=== PATIENT | male | born 1975 ===

== ENCOUNTER 2020-01-31 06:54 | Emergency (ER) | payer OTHER ==
[~2020-01-31] VITALS: Ht 170.2 cm; Wt 99.8 kg
[2020-01-31] MEDS ORDERED: AMLODIPINE BESYL5 MG PO (07:14)
[2020-01-31] MEDS ORDERED: DIAZEPAM5 MG PO (07:14)
[2020-01-31] MEDS ORDERED: PROP120ER PO (07:14)
[2020-01-31] MEDS ORDERED: PROPRANOLOL HCL80 MG PO (07:14)
== END 2020-01-31 07:37 | disposition home or self-care (01) ==
LOC: ER 06:54
DX: F41.9 Anxiety disorder, unspecified (principal); R53.1 Weakness; F32.9 Major depressive disorder, single episode, unspecified; Z79.899 Other long term (current) drug therapy
CPT/HCPCS: 99283

== ENCOUNTER 2022-05-02 18:04 | Inpatient (IN) | payer OTHER ==
[~2022-05-02] VITALS: Ht 170.2 cm; Wt 134.4 kg
[~2022-05-02 18:04] MED LIST: AMLODIPINE BESYL5 MG PO; DIAZEPAM5 MG PO; PROP120ER PO; PROPRANOLOL HCL80 MG PO
[2022-05-02 18:43] LABS: BASOPHILS ABSOLUTE AUTO 0.04 K/mm3 (0.00-0.23); BASOPHILS PERCENT AUTO 0 % (0-2); EOSINOPHILS ABSOLUTE AUTO 0.11 K/mm3 (0.00-0.68); EOSINOPHILS PERCENT AUTO 1 % (0-6); Hematocrit 39.8 % (37.0-53.0); Hemoglobin 12.5 g/dL (13.5-17.5); IMMATURE GRAN ABSOLUTE AUTO 0.04 K/mm3 (0.00-0.10); IMMATURE GRAN PERCENT AUTO 0 % (0-1); LYMPHOCYTES ABSOLUTE AUTO 0.97 K/mm3 (0.84-5.20); LYMPHOCYTES PERCENT AUTO 10 % (21-46); MONOCYTES ABSOLUTE AUTO 0.94 K/mm3 (0.16-1.47); MONOCYTES PERCENT AUTO 10 % (4-13); Mean Corpuscular HGB 26.7 pg (26.0-34.0); Mean Corpuscular HGB Conc 31.4 g/dL (31.5-36.5); Mean Corpuscular Volume 85 fL (80-100); Mean Platelet Volume 11.1 fL (9.1-12.4); NEUTROPHILS ABSOLUTE AUTO 7.65 K/mm3 (1.96-9.15); NEUTROPHILS PERCENT AUTO 79 % (41-73); Platelet Count 179 K/mm3 (150-400); RDW Coefficient Variation 16.7 % (11.7-14.2); RDW Standard Deviation 51.5 fL (35.1-46.3); Red Blood Cell Count 4.69 M/mm3 (4.30-5.90); White Blood Cell Count 9.75 K/mm3 (4.00-11.30)
[2022-05-02 19:02] LABS: Albumin, Blood 4.1 g/dL (3.4-5.0); Albumin/Globulin Ratio 1.1 (0.8-1.8); Bilirubin, Total 0.7 mg/dL (0.1-1.0); Bun/Creatinine Ratio 31.2 (12.0-20.0); Calcium, Blood 9.4 mg/dL (8.5-10.1); Creatinine, Blood 0.8 mg/dL (0.60-1.20); Globulin, Blood 3.6 g/dL (2.2-4.0); Potassium, Blood 4.2 mmol/L (3.5-5.5); Total Protein, Blood 7.7 g/dL (6.4-8.2)
[2022-05-02] MEDS ORDERED: LOSARTAN-HCTZ1 EACH PO (22:53)
--- NOTE | 2022-05-03 05:09 | NUR ---
SHIFT SUMMARY PT NEW ADMIT THIS AM. AAOX4. REPORTING DISCOMFORT SCROTUM + PENIS AT TOLERABLE LEVEL SINCE FENTANYL ADMINISTRATION IN ED. DENIES NAUSEA/EMESIS. SWELLING TO SCROTUM + PENIS NOTED, PILLOW CASES GIVEN AND ELEVATED ON PILLOWS. BLE EDEMA 3+ PITTING. PT REPORTING "THIS ALL STARTED 3 DAYS AGO." LUNG SOUNDS CLEAR. TELEMETRY READING SINUS TACH 100s-120s. HTN NOTED, DECREASING WITH PT'S ANXIETY. INDEPENDENT IN ROOM. ORIENTED TO CALL LIGHT + DEMONSTRATED USE. PT NOW RESTING POST BLOOD DRAW, AWAITING RESULTS.
[2022-05-03 05:18] LABS: Bun/Creatinine Ratio 27.1 (12.0-20.0); Creatinine, Blood 0.78 mg/dL (0.60-1.20); Potassium, Blood 3.7 mmol/L (3.5-5.5)
--- NOTE | 2022-05-03 18:34 | NUR ---
Received report from ongoing nurse. Pt resting comfortably in bed. Complaining of pain. Medicated per emar. Pt axox4. VSS stable but, bp elevated. Medicated per emar. Will continue to monitor.
--- NOTE | 2022-05-04 06:44 | NUR ---
Shift Summary Pt Scrotum still severly swollen, although pt states it is better. Pt C/O pain in scrotum, medicated per emar. AOX4, pleasant and cooperative, VSS.
--- NOTE | 2022-05-05 06:28 | NUR ---
Shift Summary Pt c/o severe pain in scrotum, 6-9/10 and constant. Medicated per emar, pt states current medications bring pain down to an acceptable level. +3 edema in scrotum, +1 BLE and abdominal edema. NPO excpet water since 0000 pending cardiac stress test today. Pt has been diuresing well all day, at least 5L and pt states edema is greatly improved from a few days ago. Unable to sleep much tonight which pt states is normal for him. On tele, AOx4, pleasant and cooperative, VSS. Pain improved this AM, pt not requesting medication at this time.
--- NOTE | 2022-05-06 03:09 | NUR ---
SHIFT SUMMARY NOC PT A/O X 4. PT HAS PART 2 OF STRESS TEST SCHEDULED FOR 05/06/22 @ 0800. D/C PENDING RESULTS. PT HAD C/O OF PAIN IN SCROTUM AND WAS MEDICATED PER EMAR. PT WAS PLEASANT AND COOPERATIVE TO CARE. PT ON TELE RUNNING SINUS RHYTHM WITH PAC @ 96 BPM. PT TAKING LASIX TID TO DIUREIS FLUID OVERLOAD FROM NEW DX OF CHF. PT IS CURRENTLY RESTING IN BED IN LOWEST POSITION, AND CALL LIGHT WITHIN REACH.WCTM.
[2022-05-06 07:25] LABS: Bun/Creatinine Ratio 29.4 (12.0-20.0); Calcium, Blood 9.4 mg/dL (8.5-10.1); Creatinine, Blood 1.09 mg/dL (0.60-1.20); Magnesium, Blood 2.4 mg/dL (1.6-2.4); Potassium, Blood 3.7 mmol/L (3.5-5.5)
--- NOTE | 2022-05-06 16:51 | NUR ---
SHIFT SUMMARY: PT A&O X4. PLEASANT AND COOPERATIVE WITH ALL CARE. O8OO STRESS TEST MOVED TO 1400. PT TOLERATED WELL. PT REMAINS TO C/O 8/10 PAIN IN SCROTAL AREA. 10MG OXY GIVEN TWICE. PT STATED THE PAIN MEDICATIONS DO NOT HELP WITH HIS PAIN. LASIX GIVEN AND TOLERATED TID. PT HAD PROLONGED QT INTERVAL AT .50 THIS AM ONE TIME. PT NO LONGER HAS PROLONGED QT. CURRENTLY SINUS RHYTHM. CALL LIGHT IN REACH. WILL CONTINUE TO MONITOR.
--- NOTE | 2022-05-07 06:41 | NUR ---
LOCO "Q" HAD NO COMPLAINTS OF CHEST PAIN OR SOB OVERNIGHT. SR ON TELE. LOWER EXTREMITIES AND FEET ARE LARGE BUT NON PITTING. SCROTUM IS SEVERLY SWOLLEN AND PAINFUL. WORKED WITH PATIENT TO TRY TO FIND A VERY GENTLE TYPE OF SCROTAL SUPPORT THIS IS REALLY A CONCERN FOR HIM PRIOR TO GOING HOME (HOPEFULLY) TODAY
[2022-05-07 06:43] LABS: Bun/Creatinine Ratio 31.1 (12.0-20.0); Calcium, Blood 9.9 mg/dL (8.5-10.1); Creatinine, Blood 1.03 mg/dL (0.60-1.20); Magnesium, Blood 2.7 mg/dL (1.6-2.4); Potassium, Blood 3.8 mmol/L (3.5-5.5)
[2022-05-07] MEDS ORDERED: JARDIANCE25 MG PO (11:57)
[2022-05-07] MEDS ORDERED: LOSA50 PO (11:59)
[2022-05-07] MEDS ORDERED: METO50ER PO (12:00)
[2022-05-07] MEDS ORDERED: FURO40 PO (12:01)
[2022-05-07] MEDS ORDERED: SPIR25 PO (12:01)
[2022-05-07] MEDS ORDERED: POTCHL20ER PO (12:02)
--- NOTE | 2022-05-07 12:35 | NUR ---
DISCHARGE: PT D/C AT 1215 VIA AUTOMOBILE WITH FRIEND. IV TAKEN OUT BY TRAFFIC CONTROLLER CABLE. TELE OFF AND JUANITA IN TELE NOTIFIED. ALL BELONGINGS SENT WITH PT. PT HAS FOLLOW-UP APT TUESDAY WITH PRIMARY AT 1400. PT STATES HE WILL MAKE IT TO APT. [facility] CALL PT FOR FOLLOW-UP APT. PHARMACIST WENT OVER NEW MEDICATIONS WITH PT AND EDUCATION PROVIDED ON NEW MEDS.
== END 2022-05-07 12:22 | disposition home or self-care (01) | DRG 291 ==
LOC: ER 18:04 → MEDS 18:05
PROVIDERS: Student in an Organized Health Care Education/Training Program; ADMIT Internal Medicine
DX: I11.0 Hypertensive heart disease with heart failure (principal); I50.41 Acute combined systolic (congestive) and diastolic (congestive) heart failure; I42.8 Other cardiomyopathies; F41.9 Anxiety disorder, unspecified; F32.A Depression, unspecified; N50.89 Other specified disorders of the male genital organs; R77.8 Other specified abnormalities of plasma proteins; F10.21 Alcohol dependence, in remission; E66.9 Obesity, unspecified; Z68.34 Body mass index [BMI] 34.0-34.9, adult; Z79.899 Other long term (current) drug therapy
CPT/HCPCS: 36415; 71046; 76870; 78452; 80048; 80053; 83735; 83880; 84484; 85025; 93005; 93010; 93017; 93306; 96372; 96374; 96375; 96376; 99285-25; A9270; A9500; G0378; J0706; J1650; J1940; J2785; J3010

== ENCOUNTER → 2024-06-04 | Outpatient (CLI) | payer OTHER ==
[~2024-06-04] MED LIST changes: +FURO40 PO; +JARDIANCE25 MG PO; +LOSA50 PO; +LOSARTAN-HCTZ1 EACH PO; +METO50ER PO; +POTCHL20ER PO; +SPIR25 PO
[2024-06-04 10:11] LABS: BASOPHILS ABSOLUTE AUTO 0.06 K/mm3 (0.00-0.23); BASOPHILS PERCENT AUTO 1 % (0-2); EOSINOPHILS ABSOLUTE AUTO 0.09 K/mm3 (0.00-0.68); EOSINOPHILS PERCENT AUTO 1 % (0-6); Hematocrit 44.4 % (37.0-53.0); Hemoglobin 13.8 g/dL (13.5-17.5); IMMATURE GRAN ABSOLUTE AUTO 0.04 K/mm3 (0.00-0.10); IMMATURE GRAN PERCENT AUTO 0 % (0-1); LYMPHOCYTES ABSOLUTE AUTO 1.18 K/mm3 (0.84-5.20); LYMPHOCYTES PERCENT AUTO 13 % (21-46); MONOCYTES ABSOLUTE AUTO 0.77 K/mm3 (0.16-1.47); MONOCYTES PERCENT AUTO 9 % (4-13); Mean Corpuscular HGB 26.1 pg (26.0-34.0); Mean Corpuscular HGB Conc 31.1 g/dL (31.5-36.5); Mean Corpuscular Volume 84 fL (80-100); Mean Platelet Volume 11.9 fL (9.1-12.4); NEUTROPHILS ABSOLUTE AUTO 6.89 K/mm3 (1.96-9.15); NEUTROPHILS PERCENT AUTO 76 % (41-73); Platelet Count 196 K/mm3 (150-400); RDW Coefficient Variation 14.8 % (11.7-14.2); RDW Standard Deviation 44.9 fL (35.1-46.3); Red Blood Cell Count 5.28 M/mm3 (4.30-5.90); White Blood Cell Count 9.03 K/mm3 (4.00-11.30)
[2024-06-04 11:21] LABS: Albumin, Blood 3.6 g/dL (3.4-5.0); Bilirubin, Total 1.5 mg/dL (0.1-1.0); Bun/Creatinine Ratio 19.8 (12.0-20.0); Calcium, Blood 9.1 mg/dL (8.5-10.1); Creatinine, Blood 1.01 mg/dL (0.60-1.20); Globulin, Blood 3.6 g/dL (2.2-4.0); Potassium, Blood 3.6 mmol/L (3.5-5.5); Thyroid Stimulating Hormone 7.17 uIU/mL (0.360-4.800); Total Protein, Blood 7.2 g/dL (6.4-8.2)
== END ==
LOC: LAB SHORT 10:03 → LAB 10:03
PROVIDERS: Physician Assistant
DX: R06.02 Shortness of breath (principal); R53.83 Other fatigue; E03.9 Hypothyroidism, unspecified
CPT/HCPCS: 80053; 83690; 83880; 84439; 84443; 84481; 84484; 85025

== ENCOUNTER → 2024-06-26 | Outpatient (CLI) | payer OTHER ==
[2024-06-26 12:51] LABS: BASOPHILS ABSOLUTE AUTO 0.04 K/mm3 (0.00-0.23); BASOPHILS PERCENT AUTO 1 % (0-2); EOSINOPHILS ABSOLUTE AUTO 0.05 K/mm3 (0.00-0.68); EOSINOPHILS PERCENT AUTO 1 % (0-6); Hematocrit 43.9 % (37.0-53.0); Hemoglobin 13.4 g/dL (13.5-17.5); IMMATURE GRAN ABSOLUTE AUTO 0.04 K/mm3 (0.00-0.10); IMMATURE GRAN PERCENT AUTO 1 % (0-1); LYMPHOCYTES ABSOLUTE AUTO 1.14 K/mm3 (0.84-5.20); LYMPHOCYTES PERCENT AUTO 13 % (21-46); MONOCYTES ABSOLUTE AUTO 0.86 K/mm3 (0.16-1.47); MONOCYTES PERCENT AUTO 10 % (4-13); Mean Corpuscular HGB 25.6 pg (26.0-34.0); Mean Corpuscular HGB Conc 30.5 g/dL (31.5-36.5); Mean Corpuscular Volume 84 fL (80-100); Mean Platelet Volume 11.9 fL (9.1-12.4); NEUTROPHILS ABSOLUTE AUTO 6.54 K/mm3 (1.96-9.15); NEUTROPHILS PERCENT AUTO 75 % (41-73); Platelet Count 210 K/mm3 (150-400); RDW Coefficient Variation 15.7 % (11.7-14.2); RDW Standard Deviation 46.3 fL (35.1-46.3); Red Blood Cell Count 5.24 M/mm3 (4.30-5.90); White Blood Cell Count 8.67 K/mm3 (4.00-11.30)
[2024-06-26 13:01] LABS: Albumin, Blood 3.6 g/dL (3.4-5.0); Albumin/Globulin Ratio 1.1 (0.8-1.8); Bilirubin, Total 1.2 mg/dL (0.1-1.0); Bun/Creatinine Ratio 17.2 (12.0-20.0); Calcium, Blood 9.1 mg/dL (8.5-10.1); Creatinine, Blood 1.22 mg/dL (0.60-1.20); Globulin, Blood 3.3 g/dL (2.2-4.0); Potassium, Blood 3.9 mmol/L (3.5-5.5); Total Protein, Blood 6.9 g/dL (6.4-8.2)
== END ==
LOC: LAB 12:46 → LAB SHORT 12:46
PROVIDERS: Chiropractor
DX: I11.0 Hypertensive heart disease with heart failure (principal); I50.9 Heart failure, unspecified; R73.9 Hyperglycemia, unspecified
CPT/HCPCS: 80053; 83036; 83880; 84484; 85025